=== PATIENT | male | born 1935 | race Caucasian/White ===

== ENCOUNTER 2017-05-26 05:34 | Inpatient (IN) | payer OTHER ==
[2017-05-20 09:36] LABS: MCH 33.7 pg (26.0-34.0); MCV 96.4 fL (80.0-100.0); RBC 4.46 mil/uL (4.50-6.00); RDW 14.4 % (10.5-14.5); WBC 6.7 thou/uL (4.0-11.0)
[2017-05-20 09:37] LABS: URINE BILIRUBIN NEGATIVE (Negative); URINE BLOOD NEGATIVE (Negative); URINE COLOR YELLOW; URINE GLUCOSE-RANDOM* NEGATIVE (Negative); URINE KETONES NEGATIVE (Negative); URINE NITRITE NEGATIVE (Negative); URINE PROTEIN (DIPSTICK) TRACE (Negative); URINE UROBILINOGEN 0.2 E.U./dl (0.2-1.0)
[2017-05-20 09:49] LABS: INR 1.1; PROTIME 11.2 Seconds (9.3-11.4)
[2017-05-20 10:04] LABS: ALBUMIN 3.7 g/dL (3.4-5.0); CALCIUM 9.4 mg/dL (8.5-10.1); CREATININE 1.2 mg/dL (0.7-1.3); POTASSIUM 4.4 mmol/L (3.5-5.1); TOTAL BILIRUBIN 0.7 mg/dL (<0.1-1.0); TOTAL PROTEIN 6.5 g/dL (6.4-8.2)
[~2017-05-26] VITALS: Ht 175.3 cm; Wt 66.5 kg
[2017-05-26] VITALS (8 sets, daily range): BP systolic 95–158; BP diastolic 38–99
--- NOTE | ~2017-05-26 | HC ---
[facility] [place] [address] CONSULTATION Name: TAY MOONEY Room #: 202-P ADM IN M.R.#: [id number] Admission: 05/26/17 Attend Phys: Aj Christian MD Discharge: Date of : 33 Report #: [id number] THIS REPORT FOR: //name// [facility]: [facility] HISTORY OF PRESENT ILLNESS: The patient is an 82-year-old male, well known to myself, who was 5 days post-carotid endarterectomy. It was a right carotid endarterectomy, had some postop encephalopathy and confusion, but it improved. He has had stable coronary disease with a remote bypass surgery in , a LEDEZMA to LAD and SVG to RCA, SVG to OM and SVG to diagonal. Blood pressure and lipids have been well controlled. There was an asymptomatic 80-85% right internal carotid that was operated on last week. I recall the night, I had seen him socially, but I called tonight to evaluate him for AFib, rapid ventricular response, initially appeared to be possibly a flutter and SVT. Subsequently, responded to 5 mg of IV Lopressor and it looks like he has converted to sinus rhythm of 90s. He seems to be alert tonight. He denies any chest pain. He denies PND, orthopnea, peripheral edema currently. Apparently he is being evaluated for rehab. Somewhat debilitated since the surgery. LABORATORY DATA: Potassium 3.8 today. Last creatinine was 0.9 two days previous, magnesium 2.2, H and H was 13 and 37. PAST MEDICAL HISTORY: Positive for coronary disease with prior bypass, hypertension, hypercholesterolemia, mild ischemic cardiomyopathy, prostate cancer, CVA, hepatitis, hernia repair, eyelid surgery. SOCIAL HISTORY: Social alcohol. Former tobacco user, retired. ALLERGIES: No known drug allergies. FAMILY HISTORY: Negative for premature coronary disease. CURRENT MEDICATIONS: Metoprolol, he was on p.o., I initiated 5 IV tonight, he received a 50 mg dose this morning; amlodipine 10; Lipitor 40; tamsulosin 0.4; Pepcid 20 b.i.d.; aspirin and Haldol. Apparently, he had previously received Seroquel and that has been discontinued. PHYSICAL EXAMINATION: GENERAL: He seems to be oriented for the most part, he has tried to get out of bed tonight. VITAL SIGNS: 90s, blood pressure 124/72. HEENT: Eyes reveal xanthelasmas. He has erythematous eyes, they are mildly injected. Pharynx is clear. NECK: Shows preserved upstrokes without bruit, status post right carotid endarterectomy, incision is clean and dry. LUNGS: Prolonged expiratory phase. [facility] [address] [place] [address] CONSULTATION Name: TAY MOONEY SEVERO Room #: 202-P [facility] IN M.R.#: [id number] Admission: 05/26/17 Attend Phys: Aj Christian MD Discharge: Date of : 33 Report #: [id number] CARDIOVASCULAR: S1, S2 distant. ABDOMEN: Soft. No HSM or abdominal bruit. EXTREMITIES: Reveal no edema. Pulses were intact. NEUROLOGIC: Nonfocal. SKIN: Warm and dry without xanthoma or ulcer. MUSCULOSKELETAL: Generalized arthritic changes. I did not ambulate him. ASSESSMENT: 1. Atrial fibrillation, rapid ventricular response, possible transient supraventricular tachycardia. 2. Status post right carotid endarterectomy with encephalopathy, improving. 3. Coronary artery disease with remote coronary artery bypass graft, LEDEZMA to LAD, SVG to RCA, SVG to OM and SVG to diagonal. 4. Mild ischemic cardiomyopathy. 5. Hypertension. 6. Hypercholesterolemia. 7. History of cerebrovascular accident. RECOMMENDATIONS AND PLAN: We will return to IV Lopressor, this has responded to 5 mg with return of normal sinus rhythm. I would consider an addition of p.o. amiodarone here to maintain this. We will repeat lab and EKG in the morning. We will continue IV Lopressor at night and add p.o. amiodarone 400 mg once a day. By: 2111 0647 Mundo Knapp MD, FACC /nt
--- NOTE | ~2017-05-26 | HC ---
[facility] [place] [address] CONSULTATION Name: TAY MOONEY Room #: 202-P [facility] IN M.R.#: [id number] Admission: 05/26/17 Attend Phys: Aj Christian MD Discharge: 06/02/17 Date of : 33 Report #: [id number] THIS REPORT FOR: //name// CC: Aj MejiaAndrea DATE OF SERVICE: 05/31/2017 HISTORY OF PRESENT ILLNESS: The patient is an 82-year-old white male with right internal carotid artery stenosis who underwent right carotid endarterectomy 05/26/2017. Postoperatively, he did have some mental status changes. Had some agitation warranting Haldol. He was seen by Neurology. Noted to have an encephalopathy. EEG on 05/27/2017 showed mild diffuse cerebral dysfunction. He was noted to be much improved as far as the encephalopathy and the plan was originally for discharge home. The concern is noted; however, with the patient's functional mobility and ADLs and we are seeing him in rehabilitation medicine consultation. PAST MEDICAL HISTORY: Includes hypertension, hyperlipidemia. ALLERGIES: No known drug allergies. MEDICATIONS: Please see the full medication listing. PAST SURGICAL HISTORY: Also includes BPH. FAMILY HISTORY: Noncontributory. SOCIAL HISTORY: Apartment with spouse, no gait aids, premorbidly. No steps. REVIEW OF SYSTEMS: No complaints of chest pain, shortness of breath or abdominal discomfort. No focal extremity pain complaints. PHYSICAL EXAMINATION: GENERAL: An 82-year-old white male in no obvious distress. VITAL SIGNS: Last recorded temperature 97.8, pulse 73, respirations 18, blood pressure 126/60. NEUROLOGIC: He is alert and pleasant. He can tell me the year, tell me the place, tell me the month. He follows basic commands without difficulty. Facies appeared to be symmetric. I could not detect any obvious visual field neglect comfort. He has functional range of motion of both upper extremities. Strength appeared to be good. He has good coordination as far as [id number]-hm-[id number]. I could not detect any obvious fine finger dexterity problems. In his lower extremities, no focal calf swelling, functional range of motion. Appeared to have good strength. While up in therapies; however, he was mod assist with sit to stand. Gait was 500 feet, but needed mod assist for significant balance with [facility] [address] [place] [address] CONSULTATION Name: TAY MOONEY BURNA Room #: 202-P [facility] IN M.R.#: [id number] Admission: 05/26/17 Attend Phys: Aj Christian MD Discharge: 06/02/17 Date of : 33 Report #: [id number] listing to the left. Sitting balance was fair minus with contact guard assistance. He did demonstrate have a history of retropulsive loss of balance. Physical therapy note he was not safe to return back home secondary to cognitive status and decline in functional mobility. He did have some inconsistent commands following noted in physical therapy. ASSESSMENT: An 82-year-old white male with the following problem list: 1. Right carotid endarterectomy on 05/26/2017. 2. Postoperative encephalopathy, which appears improved/resolved. 3. Functional mobility and ADL deficits with decreased balance retropulsion and cognitive concern as well. RECOMMENDATIONS: We will ask nursing to contact Neurology and have them reassess. Might of physical therapy findings. Insurance will be checked regarding rehab therapy options. We will be glad to follow along with you regarding his rehab therapy needs. <ELECTRONICALLY SIGNED> By: Bright Meyer MD 06/03/17 1608 1020 0419 Bright Meyer MD /nt
--- NOTE | ~2017-05-26 | EKG ---
[place] [address] [place] [address] ELECTROCARDIOGRAM REPORT Name: TAY MOONEY Room #: 202-P ADM IN M.R.#: [id number] Admission: 05/26/17 Attend Phys: Aj Christian MD Discharge: Date of : 33 Report #: [id number] THIS REPORT FOR: //name// [facility] Test Date: 2017-05-31 Test Time: 19:04:44 Pat Name: TAY MOONEY Department: Room: 202 P Gender: M Inward Toll Operator: Javan BLANCHARD : 1935 Requested By: Mundo Knapp Order Number: [id number] MD: Austin Perez Measurements Intervals [place] Rate: 147 P: 99 IA: 70 QRS: -18 QRSD: 93 T: 141 QT: 319 QTc: 499 Interpretive Statements Supraventricular tachycardia Probable LVH with secondary repol abnrm ST depression, probably rate related Compared to ECG 06/15/2003 20:00:14 SVT has replaced sinus rhythm Electronically Signed On 06-01-2017 8:25:13 CDT by Austin Perez [email or web address] <ELECTRONICALLY SIGNED> By: Austin Perez MD, [facility] 06/01/17 0825 1904 [id number] Austin Perez MD, [facility] /EPI
--- NOTE | ~2017-05-26 | S ---
[facility] [place] [address] SURGICAL PATH RPT PROCEDURE Name: TAY JIMÉNEZ Room #: 202-P ADM IN M.R.#: [id number] Admission: 05/26/17 Date of : 33 Discharge: Report #: [id number] Path Case #: [id number] PATHOLOGY REPORT COLLECTION DATE: 05/26/2017 RECEIVED DATE: 05/26/2017 SUBMITTING PHYS: Dr. Aj Chritsian OTHER PHYS: Dr. Alyssia Mejia SPECIMEN(S) RECEIVED: A.Right carotid plaque * * * * * * * * * * * * FINAL DIAGNOSIS: "Right carotid plaque", endarterectomy: - Calcific atherosclerosis. (CLW:jax; 05/28/2017) PATHOLOGIST: Yvette Grossman M.D. REPORT ELECTRONICALLY SIGNED BY: Yvette Grossman M.D. DATE/TIME: 05/28/2017 21:59 * * * * * * * * * * * * GROSS PATHOLOGY: The specimen is received in formalin labeled "Tay Jiménez, right carotid plaque". Received is an irregular segment of white-stevenson, prominently calcified rubbery tissue measuring 3.7 cm in length and ranging in diameter from 0.7 to 1.3 cm. The specimen is submitted representatively in cassette A1, following light decalcification. (CAA; 05/27/2017) CLINICAL HISTORY: Right carotid stenosis INITIAL CPT CODE(S): A; 54779, 40536 Professional services performed by [facility] at [facility] [address] [place] [address] Technical services performed by [facility] at [address] [place] [address], [address] [address]. [facility] [address] [place] [address] SURGICAL PATH RPT PROCEDURE Name: TAY JIMÉNEZ [place] Room #: 202-P ADM IN M.R.#: [id number] Admission: 05/26/17 Date of : 33 Discharge: Report #: [id number] Path Case #: [id number] [facility] [address] [address] PHONE: [phone] DIRECTOR: Claude Olvera M.D. * * * END OF REPORT * * *
--- NOTE | ~2017-05-26 | EKG ---
[place] [address] [facility] [place] [address] ELECTROCARDIOGRAM REPORT Name: TAY MOONEY Room #: 202-P ADM IN M.R.#: [id number] Admission: 05/26/17 Attend Phys: Aj Christian MD Discharge: Date of : 33 Report #: [id number] THIS REPORT FOR: //name// [facility] Test Date: 2017-05-31 Test Time: 19:45:03 Pat Name: TAY MOONEY Department: Room: 202 P Gender: M Radio Frequency Technician: Javan BLANCHARD : 1935 Requested By: Mundo Knapp Order Number: [id number] MD: Austin Perez Measurements Intervals [place] Rate: 127 P: CA: QRS: -11 QRSD: 101 T: 129 QT: 357 QTc: 520 Interpretive Statements Atrial fibrillation Probable LVH with secondary repol abnrm Prolonged QT interval Compared to ECG 06/15/2003 20:00:14 Heart rate has slowed Electronically Signed On 06-01-2017 8:26:02 CDT by Austin Perez [email or web address] <ELECTRONICALLY SIGNED> By: Austin Perez MD, [facility] 06/01/17 0826 44 44 Austin Perez MD, [facility] /EPI
--- NOTE | ~2017-05-26 | EKG ---
[place] [address] [address] [place] [place] [address] ELECTROCARDIOGRAM REPORT Name: TAY MOONEY Room #: 202-P ADM IN M.R.#: [id number] Admission: 05/26/17 Attend Phys: Aj Christian MD Discharge: Date of : 33 Report #: [id number] THIS REPORT FOR: //name// [facility] Test Date: 2017-06-01 Test Time: 06:17:42 Pat Name: TAY MOONEY Department: Room: 202 P Gender: M Ob/Gyn: hunter : 1935 Requested By: Mundo Knapp Order Number: [id number] MD: Austin Perez Measurements Intervals [place] Rate: 75 P: 63 MD: 161 QRS: -9 QRSD: 95 T: 28 QT: 409 QTc: 457 Interpretive Statements Sinus rhythm Borderline repolarization abnormality Compared to ECG 06/15/2003 20:00:14 Sinus rhythm is replaced atrial fibrillation ST and T wave abnormality is less pronounced Electronically Signed On 06-01-2017 8:32:24 CDT by Austin Perez [email or web address] <ELECTRONICALLY SIGNED> By: Austin Perez MD, [facility] 06/01/1732 6 6 Austin Perez MD, [facility] /EPI
--- NOTE | ~2017-05-26 | O ---
[facility] [place] [address] OPERATIVE REPORT Name: TAY MOONEY Room #: 238-P ADM IN M.R.#: [id number] Admission: 05/26/17 Attend Phys: Aj Christian MD Discharge: Date of : 33 Report #: [id number] THIS REPORT FOR: //name// CC: Mundo Knapp MD [facility] DATE OF SERVICE: 05/26/2017 PREOPERATIVE DIAGNOSIS: Right internal carotid artery stenosis, asymptomatic. FINAL DIAGNOSIS: Right internal carotid artery stenosis, asymptomatic. OPERATIVE PROCEDURE PERFORMED: Right internal carotid endarterectomy. SURGEON: Aj Christian M.D SCREENER OPERATOR: Patricia Esparza. ANESTHESIA: General. OPERATIVE INDICATIONS: The patient is an 82-year-old male who is a known patient of Dr. Knapp. The patient has been followed for internal carotid artery stenosis on the right side. His stenosis has become greater than 70% by ultrasound and this was confirmed by angiography. The patient has been asymptomatic. No evidence of TIAs or amaurosis fugax or prior stroke. He is admitted and brought to the operating room now for right internal carotid artery endarterectomy. OPERATIVE SUMMARY: The patient was brought to the operating room, placed on the OR table in supine position. After anesthesia was induced via the general endotracheal route and monitoring lines have been positioned, the patient was prepped and draped in sterile fashion with chlorhexidine. I made an oblique incision along the border of the sternocleidomastoid muscle. Dissection was carried down medially and we had divided the facial vein. The contents of the carotid sheath were then dissected free from surrounding tissues. We isolated the common external and internal carotid arteries. The hypoglossal nerve over the internal carotid artery, it was visualized and mobilized, and care was taken not to injure it during this case. We gave 10,000 units of intravenous heparin. We clamped the internal, then common, and then external carotid arteries. A common carotid arteriotomy was made and extended up into the internal carotid artery. A 14-Sinhala shunt was placed in the internal carotid artery, deaired and then placed in the common carotid artery. We then reestablished flow to the brain. There were no EEG changes noted during this time period. We then dissected the plaque from the vessel wall. The plaque was amputated proximally. Distally, there was good tapering and we performed an [facility] [address] [place] [address] OPERATIVE REPORT Name: TAY MOONEY Room #: 238-P [facility] IN M.R.#: [id number] Admission: 05/26/17 Attend Phys: Aj Christian MD Discharge: Date of : 33 Report #: [id number] eversion endarterectomy of the external carotid artery. We then debrided all loose fronds from the vessel surface. Distally, there was extensive debridement do; however, there was no evidence of an intimal flap and we did not place any distal tacking sutures. The arteriotomy was then closed primarily with running 6-0 Prolene suture. Prior to completing the closure, the shunt was removed, the site was flushed both retrograde and antegrade and irrigated with heparinized saline. It was deaired by releasing the clamp on the external carotid artery and then we completed the closure. Next, the common clamp was released to begin flow down the external carotid artery and finally the internal clamp was released to begin flow back up the internal carotid artery. Again, no EEG changes were noted during the time period of shunt removal to vessel closure. After flow was reestablished, we gave protamine to reverse the heparin. We achieved hemostasis along the suture line with an additional suture and the use of Surgicel. Once adequate hemostasis was achieved, the wound was closed in multiple layers with absorbable suture. The procedure was completed. The patient was taken to the postanesthesia care unit in stable condition. Full neurologic exam is pending at the time of this dictation. Operative blood loss approximately 50 mL. There were no intraoperative complications noted. All sponge and needle counts were reported as correct. <ELECTRONICALLY SIGNED> By: Aj Christian MD 05/27/17 1615 1239 1430 Aj Christian MD /nt
[~2017-05-26 05:34] MED LIST: ASPIRIN325 PO; ATORVASTATIN CA40 MG PO; FLOMAX0.4 MG PO; MULTIVITAMINS PO; NORVASC10 MG PO; TOPROL XL25 MG PO; VITAMIN D-32000 UNIT PO; ZESTRIL20 MG PO
[2017-05-27] VITALS (8 sets, daily range): BP systolic 107–145; BP diastolic 53–76
[2017-05-27 09:04] LABS: HEMATOCRIT 37.5 % (42.0-52.0); HEMOGLOBIN 13.3 gm/dL (14.0-18.0)
[2017-05-27 09:26] LABS: POTASSIUM 4.4 mmol/L (3.5-5.1)
[2017-05-28] VITALS (18 sets, daily range): BP systolic 140–197; BP diastolic 63–140
[2017-05-29] VITALS (8 sets, daily range): BP systolic 137–161; BP diastolic 63–92
[2017-05-29 14:54] LABS: CALCIUM 9.6 mg/dL (8.5-10.1); CREATININE 0.9 mg/dL (0.7-1.3); POTASSIUM 3.5 mmol/L (3.5-5.1)
[2017-05-30 00:30] VITALS: BP 155/86; BP 161/92
[2017-05-30 04:30] VITALS: BP 156/87
[2017-05-30 07:11] VITALS: BP 139/75
[2017-05-30 11:38] VITALS: BP 125/70
[2017-05-30 19:13] VITALS: BP 182/98
[2017-05-30 22:00] VITALS: BP 182/98
[2017-05-31 08:20] VITALS: BP 126/60
[2017-05-31 12:55] VITALS: BP 134/65
[2017-05-31 15:50] VITALS: BP 104/52
[2017-05-31 19:12] VITALS: BP 120/69
[2017-05-31 20:12] LABS: MAGNESIUM 2.2 mg/dL (1.8-2.4); POTASSIUM 3.8 mmol/L (3.5-5.1)
[2017-06-01 03:46] LABS: HEMATOCRIT 44.4 % (42.0-52.0); HEMOGLOBIN 15.6 gm/dL (14.0-18.0); MCH 33.7 pg (26.0-34.0); MCHC 35.2 g/dL (28.0-37.0); MCV 95.6 fL (80.0-100.0); RBC 4.64 mil/uL (4.50-6.00); RDW 13.8 % (10.5-14.5); WBC 7.4 thou/uL (4.0-11.0)
[2017-06-01 04:00] LABS: CALCIUM 9.2 mg/dL (8.5-10.1); POTASSIUM 3.5 mmol/L (3.5-5.1)
[2017-06-01 08:03] VITALS: BP 135/54
[2017-06-01] MEDS ORDERED: TOPROL XL25 MG PO ×2 (09:40→10:02)
[2017-06-01] MEDS ORDERED: PACERONE 200 M200 MG PO ×2 (09:41→10:02)
[2017-06-01] MEDS ORDERED: AMLODIPINE BESYL5 MG PO (09:42)
[2017-06-01 11:46] VITALS: BP 88/50
[2017-06-01 15:10] VITALS: BP 123/61
[2017-06-01 19:26] VITALS: BP 142/78
[2017-06-02 04:43] VITALS: BP 138/68
[2017-06-02 07:15] VITALS: BP 103/51
[2017-06-02 08:00] VITALS: BP 103/51
[2017-06-02 11:51] VITALS: BP 91/47
[2017-06-02 14:21] VITALS: BP 91/47
== END 2017-06-02 16:17 | DRG 37 ==
LOC: TBA 05:34 → ICU 05:34 → PRE 08:37 → TBA 13:45 → ICU 14:12 → 2N 05-28 22:06
PROVIDERS: Internal Medicine Cardiovascular Disease; Nurse Practitioner; Thoracic Surgery (Cardiothoracic Vascular Surgery)
PROC: 03CK0ZZ Extirpation of Matter from Right Internal Carotid Artery, Open Approach (ICD-10-PCS; principal; 2017-05-26)
PROC: 4A00X4Z Measurement of Central Nervous Electrical Activity, External Approach (ICD-10-PCS; 2017-05-27)
DX: I65.21 Occlusion and stenosis of right carotid artery (principal); G93.40 Encephalopathy, unspecified; I10 Essential (primary) hypertension; G93.89 Other specified disorders of brain; N40.0 Benign prostatic hyperplasia without lower urinary tract symptoms; I25.10 Atherosclerotic heart disease of native coronary artery without angina pectoris; E78.00 Pure hypercholesterolemia, unspecified; I25.5 Ischemic cardiomyopathy; I48.91 Unspecified atrial fibrillation; Z86.73 Personal history of transient ischemic attack (TIA), and cerebral infarction without residual deficits; Z95.1 Presence of aortocoronary bypass graft; Z85.46 Personal history of malignant neoplasm of prostate; Z87.891 Personal history of nicotine dependence
CPT/HCPCS: 10078; 10081; 50010; 50101; 50386; 50417; 50455; 51301; 56524; 56526; 56528; 56534; 56639; 62110; 62900; 65002; 65020; 65040; 65043; 70005